=== PATIENT | male | born 2000 | race Caucasian/White ===

== ENCOUNTER 2019-09-29 23:14 | Emergency (ER) | payer OTHER ==
[~2019-09-29] VITALS: Ht 177.8 cm; Wt 86.4 kg
--- NOTE | 2019-09-29 23:37 | REPVR ---
PROCEDURE INFORMATION: Exam: CT Cervical Spine Without Contrast Exam date and time: 09/29/2019 11:17 PM Age: 19 years old Clinical indication: Neck pain; Additional info: Trauma, loc TECHNIQUE: Imaging protocol: Computed tomography images of the cervical spine without contrast. Radiation optimization: All CT scans at this facility use at least one of these dose optimization techniques: automated exposure control; mA and/or kV adjustment per patient size (includes targeted exams where dose is matched to clinical indication); or iterative reconstruction. COMPARISON: No relevant prior studies available. FINDINGS: Vertebrae: No segmental vertebral malalignment. Vertebral body height is maintained at all levels. No acute fracture. No destructive or blastic cervical spine osseous lesion. Soft tissues: Soft tissues show no concerning abnormality or asymmetry. Lungs: Imaged lung apices demonstrate no concerning abnormality. Pleural space: No apical pneumothorax. Other findings: Intervertebral disc spaces are appropriate for age. IMPRESSION: No acute fracture or traumatic segmental cervical malalignment. Electronically signed by: William Gallo On 09/29/2019 23:37:19 PM
--- NOTE | 2019-09-29 23:41 | REPVR ---
PROCEDURE INFORMATION: Exam: CT Head Without Contrast Exam date and time: 09/29/2019 11:17 PM Age: 19 years old Clinical indication: Injury or trauma; Fall; Initial encounter; Concussion / head injury; With loss of consciousness; Not specified; Additional info: Trauma, loc TECHNIQUE: Imaging protocol: Computed tomography of the head without contrast. Radiation optimization: All CT scans at this facility use at least one of these dose optimization techniques: automated exposure control; mA and/or kV adjustment per patient size (includes targeted exams where dose is matched to clinical indication); or iterative reconstruction. COMPARISON: No relevant prior studies available. FINDINGS: Brain: No intracranial mass, mass effect or midline shift. No acute intracranial hemorrhage. No CT evidence of acute cortical infarct. Ventricles: Ventricles, cisterns, and sulci are normal in size for age. Bones/joints: No calvarial fracture or destructive process. Sinuses: Imaged paranasal sinuses are clear. Mastoid air cells: Mastoid air cells are normally aerated. Orbits: Imaged orbits are unremarkable. Soft tissues: No focal extracranial soft tissue swelling. IMPRESSION: No acute or concerning focal intracranial abnormality. Electronically signed by: William Gallo On 09/29/2019 23:41:10 PM
--- NOTE | 2019-09-30 01:50 | REP ---
Clinical: Trauma . Technique: AP, lateral, bilateral oblique views. Findings: No acute fracture or dislocation. Skeletal structures and joint spaces are intact and normal. Ankle mortise appears stable. No subcutaneous emphysema or radiodense foreign body. Impression: Normal right ankle radiograph series. No acute fracture dislocation. Electronically Signed by Isidro Carroll MD 09/30/2019 01:41 A
[2019-09-30 01:51] VITALS: BP 133/81
--- NOTE | 2019-09-30 01:52 | REP ---
Clinical: Trauma. Technique: AP, lateral, bilateral oblique views right foot . Findings: Mild soft tissue swelling suggested. The osseous structures and joint spaces are intact and normal. There is no evidence for acute fracture or dislocation. Surrounding soft tissues are unremarkable. No subcutaneous emphysema or radiodense foreign body. Impression: Mild soft tissue swelling suggested. No acute fracture or dislocation. Electronically Signed by Isidro Carroll MD 09/30/2019 01:43 A
== END 2019-09-30 02:01 | disposition home or self-care (01) ==
LOC: M ED 23:14
DX: S06.0X9A Concussion with loss of consciousness of unspecified duration, initial encounter (principal); S00.83XA Contusion of other part of head, initial encounter; S93.401A Sprain of unspecified ligament of right ankle, initial encounter; W17.89XA Other fall from one level to another, initial encounter; Y99.1 Military activity; Y92.9 Unspecified place or not applicable; Y93.89 Activity, other specified

== ENCOUNTER 2020-08-07 20:39 | Emergency (ER) | payer OTHER ==
[~2020-08-07] VITALS: Ht 177.8 cm; Wt 96.4 kg
[2020-08-07] MEDS ORDERED: NS 1,000 ML IV ONE (22:30)
--- NOTE | 2020-08-07 22:47 | ECGEPIP ---
[facility] - ED Test Date: 2020-08-07 Pat Name: KRYSTYNA PERKINS Department: Room: - Gender: Male [employer] Administrator: mark : 2000 Requested By: NANETTE Mosqueda Order Number: [id number] Reading MD: Shaheed Winslow Measurements Intervals [place] Rate: 73 P: 45 TX: 194 QRS: -8 QRSD: 96 T: 25 QT: 388 QTc: 427 Interpretive Statements Normal sinus rhythm Comparison tracing not on file Electronically Signed on 08-07-2020 22:46:44 EDT by Shaheed Winslow
[2020-08-07 22:52] LABS: BASO % 0.6 % (0.0-1.0); EOS # 0.1 10^3/uL (0.0-0.5); EOS % 1.3 % (0.0-3.0); HEMOGLOBIN 14.5 g/dl (13.5-17.5); LYMPH # 2.4 10^3/uL (1.5-5.0); LYMPH % 34.1 % (24.0-44.0); MEAN CORPUSCULAR HEMOGLOBIN 30.6 pg (27.0-33.0); MEAN CORPUSCULAR HGB CONC 34.5 g/dl (32.0-36.5); MEAN CORPUSCULAR VOLUME 88.6 fl (80.0-96.0); MONO # 0.5 10^3/uL (0.0-0.8); MONO % 7.6 % (2.0-8.0); NEUTROPHILS # 3.9 10^3/uL (1.5-8.5); PLATELET COUNT, AUTOMATED 221 10^3/uL (150-450); RED BLOOD COUNT 4.74 10^6/uL (4.30-6.10)
[2020-08-07 23:24] LABS: BLOOD UREA NITROGEN 18 MG/DL (7-18); CALCIUM LEVEL 8.7 MG/DL (8.5-10.1); CARBON DIOXIDE LEVEL 27 MEQ/L (21-32); CHLORIDE LEVEL 111 MEQ/L (98-107); CK-MB VALUE MASS 2.7 NG/ML (<3.6); CPK CREATINE PHOSPHOKINASE 345 U/L (39-308); CREATININE FOR GFR 0.88 MG/DL (0.70-1.30); GLOMERULAR FILTRATION RATE > 60.0 (>60); GLUCOSE, FASTING 85 MG/DL (70-100); MB/CK RELATIVE INDEX 0.78 (< OR =4); POTASSIUM SERUM 3.9 MEQ/L (3.5-5.1); SODIUM LEVEL 141 MEQ/L (136-145); TROPONIN I < 0.02 NG/ML (< 0.10)
--- NOTE | 2020-08-07 23:31 | REPVR ---
PROCEDURE INFORMATION: Exam: XR Chest Exam date and time: 08/07/20 (10:36pm) Age: 20 years old Clinical indication: Chest pain TECHNIQUE: Imaging protocol: Portable CXR Views: 1 view COMPARISON: No relevant prior studies available FINDINGS: Lungs: Unremarkable. No consolidation. Pleural spaces: Unremarkable. No pleural effusions. No pneumothorax. Heart/Mediastinum: Unremarkable. No cardiomegaly. Bones/joints: Thoracic spine scoliosis. IMPRESSION: No acute findings. Clear lung danielson. Electronically signed by: Shiloh Reagan On 08/07/2020 23:32:09 PM
[2020-08-08 01:16] VITALS: BP 101/54
== END 2020-08-08 01:25 | disposition home or self-care (01) ==
LOC: M ED 20:39
DX: R07.9 Chest pain, unspecified (principal)

== ENCOUNTER 2020-09-06 06:03 | Emergency (ER) | payer OTHER ==
[~2020-09-06] VITALS: Ht 177.8 cm; Wt 102.1 kg
[2020-09-06] MEDS ORDERED: SODIUM CHLORIDE NASAL 0.65% SPRAY BTL (OCEAN) STA (06:57)
[2020-09-06] MEDS ORDERED: OXYMETAZOLINE 0.05% NASAL SPRAY (AFRIN) ONE (07:00)
[2020-09-06 07:23] LABS: BASO % 0.8 % (0.0-1.0); EOS # 0.1 10^3/uL (0.0-0.5); EOS % 2.3 % (0.0-3.0); HEMATOCRIT 42.4 % (42.0-52.0); HEMOGLOBIN 14.5 g/dl (13.5-17.5); LYMPH # 1.5 10^3/uL (1.5-5.0); MEAN CORPUSCULAR HEMOGLOBIN 30.4 pg (27.0-33.0); MEAN CORPUSCULAR HGB CONC 34.2 g/dl (32.0-36.5); MEAN CORPUSCULAR VOLUME 88.9 fl (80.0-96.0); MONO # 0.4 10^3/uL (0.0-0.8); MONO % 7.7 % (2.0-8.0); NEUTROPHILS # 3.2 10^3/uL (1.5-8.5); PLATELET COUNT, AUTOMATED 223 10^3/uL (150-450); RED BLOOD COUNT 4.77 10^6/uL (4.30-6.10); WHITE BLOOD COUNT 5.2 10^3/uL (4.0-10.0)
[2020-09-06 07:49] LABS: INR 0.88; PROTHROMBIN TIME 12.1 SECONDS (12.5-14.3)
[2020-09-06 07:50] LABS: PARTIAL THROMBOPLASTIN TIME 29.4 SECONDS (24.2-38.5)
[2020-09-06 10:42] VITALS: BP 128/80
== END 2020-09-06 10:43 | disposition home or self-care (01) ==
LOC: M ED 06:03
DX: R04.0 Epistaxis (principal)